=== PATIENT | female | born 1950 | race Caucasian/White ===

== ENCOUNTER 2021-04-01 12:43 | Emergency (ER) | payer MEDICARE, OTHER | END 2021-04-01 13:30 | disposition home or self-care (01) | LOC: VM.ED 12:43 | DX: R07.89 Other chest pain (principal) | CPT/HCPCS: 99284-25 ==

== ENCOUNTER 2024-08-22 07:40 | Day surgery (SDC) | payer MEDICARE, OTHER ==
[~2024-08-22 07:40] MED LIST: Brimonidine 0.2% Ophth Soln 5 ML Bottle ONE; Dexamethasone/Neomycin/Polymyxin B Ophth Oint 3.5 GM Tube ONE; Lidocaine 1% 2 ML ONE; Phenyleprhine/Ketorolac 4 ML Vial ONE; Povidone-Iodine 5% Sterile Ophth Soln 30 ML Bottle ONE; Proparacaine 0.5% Ophth Soln 15 ML Bottle ONE
[2024-08-22] MEDS: Tropicamide 1% Ophth Soln 15 ML Bottle EYERT SCH (07:45)
[2024-08-22] MEDS: Phenylephrine 2.5% Ophth Soln 2 ML Bot EYERT SCH (07:45)
[2024-08-22] MEDS: Cyclopentolate 1% Opth Soln 2 ML Bottle EYERT SCH (07:45)
[2024-08-22] MEDS: Moxifloxacin 0.5% Ophth Soln 3 ML Bottle EYERT ONE ×2 (08:05→09:28)
[2024-08-22] MEDS ORDERED: Midazolam 1 MG/ML 2 ML SDV ONE (08:35)
[2024-08-22] MEDS ORDERED: fentaNYL 100 MCG/2 ML SDV ONE (08:35)
[2024-08-22] MEDS ORDERED: ceFAZolin 500 MG Vial ONE (09:18)
[2024-08-22] MEDS: Balanced Salt Solution Ophth Irrig 500 ML Bottle IOCULAR ONE (09:28)
[2024-08-22] MEDS: Phenyleprhine/Ketorolac 4 ML Vial IO ONE (09:28)
[2024-08-22] MEDS: Povidone-Iodine 5% Sterile Ophth Soln 30 ML Bottle EYERT ONE (09:28)
[2024-08-22] MEDS: Chondroitin Sulfate/Hyaluronate Sodium Ophth Inj 0.5 ML Syringe IOCULAR ONE (09:29)
[2024-08-22] MEDS: Dexamethasone/Neomycin/Polymyxin B Ophth Oint 3.5 GM Tube EYERT ONE (09:29)
[2024-08-22] MEDS: Brimonidine 0.2% Ophth Soln 5 ML Bottle EYERT ONE (09:29)
[2024-08-22] MEDS: Lidocaine 1% PF 2 ML SDV INFILT ONE (09:29)
[2024-08-22] MEDS: acetaZOLAMIDE 500 MG Cap.ER PO ONE (09:49)
== END 2024-08-22 10:15 | disposition home or self-care (01) ==
LOC: VM.SDS 07:40
PROVIDERS: ATTEND Ophthalmology
DX: H25.813 Combined forms of age-related cataract, bilateral (principal); H02.831 Dermatochalasis of right upper eyelid; H02.834 Dermatochalasis of left upper eyelid; C50.912 Malignant neoplasm of unspecified site of left female breast; C79.51 Secondary malignant neoplasm of bone; I11.0 Hypertensive heart disease with heart failure; I50.9 Heart failure, unspecified; E66.9 Obesity, unspecified; Z68.38 Body mass index [BMI] 38.0-38.9, adult; Z87.891 Personal history of nicotine dependence
CPT/HCPCS: 00142; 99100; A9270-GY; J0690; J1097; J2003; J2250; J3010; J3490; V2632

== ENCOUNTER 2024-09-26 06:25 | Day surgery (SDC) | payer MEDICARE, OTHER ==
[~2024-09-26 06:25] MED LIST changes: -Brimonidine 0.2% Ophth Soln 5 ML Bottle ONE; -Proparacaine 0.5% Ophth Soln 15 ML Bottle ONE
[2024-09-26] MEDS: Cyclopentolate 1% Opth Soln 2 ML Bottle EYELF SCH (06:34)
[2024-09-26] MEDS: Moxifloxacin 0.5% Ophth Soln 3 ML Bottle EYELF ONE ×2 (06:54→07:41)
[2024-09-26] MEDS ORDERED: fentaNYL 100 MCG/2 ML SDV ONE (07:34)
[2024-09-26] MEDS ORDERED: Midazolam 1 MG/ML 2 ML SDV ONE (07:34)
[2024-09-26] MEDS ORDERED: Metoprolol Tartrate 5 MG/5 ML SDV ONE (07:38)
[2024-09-26] MEDS: Povidone-Iodine 5% Sterile Ophth Soln 30 ML Bottle EYELF ONE (07:40)
[2024-09-26] MEDS: Balanced Salt Solution Ophth Irrig 500 ML Bottle IOCULAR ONE (07:41)
[2024-09-26] MEDS: Lidocaine 1% PF 2 ML SDV INFILT ONE (07:42)
[2024-09-26] MEDS: Phenyleprhine/Ketorolac 4 ML Vial IO ONE (07:42)
[2024-09-26] MEDS: Dexamethasone/Neomycin/Polymyxin B Ophth Oint 3.5 GM Tube EYELF ONE (07:43)
[2024-09-26] MEDS: Chondroitin Sulfate/Hyaluronate Sodium Ophth Inj 0.5 ML Syringe IOCULAR ONE (07:43)
[2024-09-26] MEDS: acetaZOLAMIDE 500 MG Cap.ER PO ONE (08:10)
== END 2024-09-26 08:30 | disposition home or self-care (01) ==
LOC: VM.SDS 06:25
PROVIDERS: ATTEND Ophthalmology
DX: H25.812 Combined forms of age-related cataract, left eye (principal); C50.912 Malignant neoplasm of unspecified site of left female breast; C79.51 Secondary malignant neoplasm of bone; I11.0 Hypertensive heart disease with heart failure; I50.9 Heart failure, unspecified; I48.91 Unspecified atrial fibrillation; E66.9 Obesity, unspecified; Z79.01 Long term (current) use of anticoagulants; Z79.899 Other long term (current) drug therapy; Z87.891 Personal history of nicotine dependence; Z68.38 Body mass index [BMI] 38.0-38.9, adult
CPT/HCPCS: 00142; 99100; A9270-GY; J1097; J2003; J2250; J3010; J3490